=== PATIENT | male | born 1960 | race African-American/Black ===

== ENCOUNTER 2021-11-24 11:06 | Inpatient (IN) | payer MEDICAID ==
[~2021-11-24] VITALS: Ht 167.6 cm; Wt 81.6 kg
[2021-11-24] MEDS ORDERED: SODIUM CHLORIDE 0.9% 1,000 ML IV ONE ×2 (12:00→14:00)
[2021-11-24 12:20] LABS: CLARITY URINE CLEAR (CLEAR); COLOR URINE YELLOW (YELLOW); KETONES URINE 2+ (NEGATIVE); LEUKOCYTE ESTERASE URINE NEGATIVE (NEGATIVE); NITRITE URINE NEGATIVE (NEGATIVE); OCCULT BLOOD URINE NEGATIVE (NEGATIVE); PROTEIN URINE NEGATIVE (NEGATIVE); UROBILINOGEN URINE 0.2 E.U./dL (0.2-1.0)
[2021-11-24 12:27] LABS: BASOPHILS % 0.7 % (0.0-2.0); HEMATOCRIT. 41.9 % (42.0-52.0); HEMOGLOBIN. 14.6 g/dL (14.0-18.0); LYMPHOCYTES % 13.1 % (20.0-50.0); MEAN CORPUSCULAR HEMOGLOBIN 31.6 pg (28.0-32.0); MEAN CORPUSCULAR VOLUME 90.6 fL (80.0-94.0); MEAN PLATELET VOLUME 11.8 fl (7.4-10.4); MONOCYTES % 8.8 % (2.0-8.0); NEUTROPHILS % 73.4 % (40.0-76.0); PLATELET 196 x1000/uL (130-400); RED BLOOD CELL COUNT 4.63 mill/uL (4.7-6.1); RED CELL DISTRIBUTION WIDTH 13.7 % (11.6-14.6)
[2021-11-24 12:29] LABS: CHLORIDE 99 mEq/L (98-107)
[2021-11-24 12:29] LABS: BG BASE EXCESS -1.5 mmol/L (-2.0-2.0); BG CARBOXYHEMOGLOBIN 0.6 % (0.5-1.5); BG FRACTION INSPIRED OXYGEN 21; BG HCO3 ACT 23.1 mmol/L (22.0-26.0); BG METHEMOGLOBIN 0.4 % (0.0-1.5); BG PCO2 38.7 mmHg (35.0-45.0); BG PH 7.394 (7.350-7.450); BG PO2 84.5 mmHg (75.0-100.0); BG SAMPLE SITE RIGHT RADIAL; BG VENT MODE ROOM AIR
[2021-11-24 12:39] LABS: BETA HYDROXYBUTYRATE 3.9 mMol/L (0.0-0.3)
[2021-11-24] MEDS ORDERED: INSULIN REGULAR (HUMULIN R) 300UNITS/3ML VIAL IV ONE (14:00)
[2021-11-24 20:56] VITALS: BP 109/70
[2021-11-24] MEDS ORDERED: ONDANSETRON HCL 4MG/2ML INJ IV PRN (21:30)
[2021-11-24] MEDS ORDERED: DEXTROSE 50% WATER 50ML SYRINGE IV PRN (21:30)
[2021-11-24] MEDS ORDERED: ACETAMINOPHEN 325MG TABLET PO PRN (21:30)
[2021-11-24 21:54] VITALS: BP 109/70
[2021-11-24] MEDS ORDERED: INSULIN LISPRO 100 UNITS/ML SUBCUT NR (22:15)
[2021-11-24] MEDS: INSULIN GLARGINE 100 UNITS/ML SUBCUT SCH (22:45)
[2021-11-25] VITALS: BP 129/78
[2021-11-25 04:00] VITALS: BP 97/52
[2021-11-25] MEDS: BLOOD SUGAR DIAGNOSTIC STRIP TEST SCH ×4 (06:45→21:31)
[2021-11-25] MEDS: METFORMIN HCL 500MG TABLET PO SCH ×2 (06:45→16:56)
[2021-11-25] MEDS: INSULIN LISPRO 100 UNITS/ML SUBCUT SCH ×4 (06:45→21:31)
[2021-11-25 08:00] VITALS: BP 105/57
[2021-11-25 08:05] LABS: BASOPHILS % 1.4 % (0.0-2.0); EOSINOPHILS % 5.7 % (0.0-5.0); HEMATOCRIT. 38.7 % (42.0-52.0); HEMOGLOBIN. 13.5 g/dL (14.0-18.0); LYMPHOCYTES % 28.1 % (20.0-50.0); MEAN CORPUSCULAR HEMOGLOBIN 31.2 pg (28.0-32.0); MEAN CORPUSCULAR VOLUME 89.5 fL (80.0-94.0); MEAN PLATELET VOLUME 11.3 fl (7.4-10.4); MONOCYTES % 6.4 % (2.0-8.0); NEUTROPHILS % 58.4 % (40.0-76.0); PLATELET 170 x1000/uL (130-400); RED BLOOD CELL COUNT 4.33 mill/uL (4.7-6.1); RED CELL DISTRIBUTION WIDTH 13.7 % (11.6-14.6)
[2021-11-25] MEDS: ENOXAPARIN 40MG/0.4ML SYR SUBCUT SCH (08:24)
[2021-11-25] MEDS: INSULIN GLARGINE 100 UNITS/ML SUBCUT SCH ×2 (09:07→21:31)
[2021-11-25 09:39] LABS: CHLORIDE 106 mEq/L (98-107)
[2021-11-25 09:46] LABS: HDL CHOLESTEROL 33 mg/dL (40-59); LDL CHOLESTEROL 145 mg/dL (5-100)
[2021-11-25 12:00] VITALS: BP 110/77
[2021-11-25 15:20] LABS: CHLORIDE 101 mEq/L (98-107)
[2021-11-25] MEDS ORDERED: POTASSIUM CHLORIDE 20MEQ TABLET SR PO NR (15:45)
[2021-11-25 16:00] VITALS: BP 97/67
[2021-11-25 20:00] VITALS: BP 94/59
[2021-11-25] MEDS ORDERED: MAGNESIUM/ALUMINUM HYDROXIDE/SIMETHICONE 30ML UDC PO PRN (21:45)
[2021-11-25] MEDS ORDERED: CLONIDINE 0.1MG TABLET PO PRN (21:45)
[2021-11-26] VITALS: BP 107/59
[2021-11-26 04:00] VITALS: BP 93/60
[2021-11-26] MEDS: BLOOD SUGAR DIAGNOSTIC STRIP TEST SCH ×2 (06:20→11:13)
[2021-11-26] MEDS: METFORMIN HCL 500MG TABLET PO SCH (06:49)
[2021-11-26] MEDS: INSULIN LISPRO 100 UNITS/ML SUBCUT SCH ×2 (06:50→11:45)
[2021-11-26 08:00] VITALS: BP 128/83
[2021-11-26] MEDS: ENOXAPARIN 40MG/0.4ML SYR SUBCUT SCH (08:03)
[2021-11-26 08:09] LABS: BASOPHILS % 0.6 % (0.0-2.0); EOSINOPHILS % 6.7 % (0.0-5.0); HEMOGLOBIN. 13.6 g/dL (14.0-18.0); LYMPHOCYTES % 26.8 % (20.0-50.0); MEAN CORPUSCULAR HEMOGLOBIN 31.7 pg (28.0-32.0); MEAN CORPUSCULAR VOLUME 88.8 fL (80.0-94.0); MEAN PLATELET VOLUME 10.8 fl (7.4-10.4); NEUTROPHILS % 57.9 % (40.0-76.0); PLATELET 179 x1000/uL (130-400); RED BLOOD CELL COUNT 4.28 mill/uL (4.7-6.1); RED CELL DISTRIBUTION WIDTH 13.9 % (11.6-14.6)
[2021-11-26 08:17] LABS: CHLORIDE 104 mEq/L (98-107)
[2021-11-26 08:25] LABS: PHOSPHORUS 3.4 mg/dL (2.5-4.9)
[2021-11-26] MEDS: INSULIN GLARGINE 100 UNITS/ML SUBCUT SCH (09:08)
[2021-11-26 12:00] VITALS: BP 135/95
[2021-11-26] MEDS ORDERED: BLOO-1465 MT (15:08)
[2021-11-26] MEDS ORDERED: LANC-929 TP (15:08)
[2021-11-26] MEDS ORDERED: INSLIS SUBCUT (15:08)
[2021-11-26] MEDS ORDERED: METF-414 PO (15:08)
[2021-11-26] MEDS ORDERED: LANTUSUD SUBCUT (15:08)
[2021-11-26 15:50] VITALS: BP 135/95
[2021-11-26 16:00] VITALS: BP 115/90
[2021-11-27] MEDS ORDERED: POTASSIUM CHLORIDE 20MEQ TABLET SR PO SCH (09:00)
== END 2021-11-26 16:10 | disposition home or self-care (01) | DRG 420 ==
LOC: ER 11:06 → 8WST 13:51 → EDBEDREQ 13:53 → EDBEDREQTM 13:53 → ENRESERV 20:09
PROVIDERS: ADMIT Internal Medicine; ATTEND Internal Medicine
DX: E11.65 Type 2 diabetes mellitus with hyperglycemia (principal); E87.6 Hypokalemia; I10 Essential (primary) hypertension; M19.90 Unspecified osteoarthritis, unspecified site; Z90.49 Acquired absence of other specified parts of digestive tract; Z87.891 Personal history of nicotine dependence
CPT/HCPCS: 36415; 36600; 71045; 80048; 80053; 80061; 80076; 81003; 82010; 82375; 82805; 82962; 83036; 83735; 84100; 84484; 85025; 93005; 93970; 99285; J1650; J1815; J7030